=== PATIENT | female | born 2000 | race Two or more races ===

== ENCOUNTER 2022-09-07 00:32 | Emergency (ER) | payer OTHER ==
[~2022-09-07] VITALS: Ht 165.1 cm; Wt 91.6 kg
[2022-09-07] MEDS ORDERED: DIALYVITE 800-1 EACH PO (00:51)
== END 2022-09-07 06:15 ==
LOC: ER 00:32 → EDBD 00:36 → ER 00:36
DX: O98.512 Other viral diseases complicating pregnancy, second trimester (principal); U07.1 COVID-19; Z3A.17 17 weeks gestation of pregnancy

== ENCOUNTER 2022-12-25 17:11 | Outpatient (CLI) | payer OTHER ==
[~2022-12-25 17:11] MED LIST: DIALYVITE 800-1 EACH PO
[2022-12-25 18:32] LABS: HEMATOCRIT 32.9 % (36.0-45.00); HEMOGLOBIN 11.1 g/dL (12.0-15.00); MEAN CELL VOLUME 83.3 fL (80.00-100.00); MEAN CORPUSCULAR HEMOGLOBIN 28.2 pg (27.00-32.0); MEAN CORPUSCULAR HGB CONC 33.8 g/dl (32.0-36.0); PLATELET COUNT 218 K/uL (150-450); RED BLOOD COUNT 3.95 M/uL (4.00-6.00); RED CELL DISTRIBUTION WIDTH 13.9 % (11.5-14.5)
[2022-12-25 18:38] LABS: URINE APPEARANCE Cloudy; URINE BILIRRUBIN Small (NEGATIVE); URINE BLOOD Negative; URINE COLOR Dark Yellow; URINE GLUCOSE Negative (NEGATIVE); URINE LEUKOCYTE Moderate; URINE NITRATE Negative; URINE PROTEIN Negative (NEGATIVE)
[2022-12-25 18:39] LABS: URINE BACTERIA 2585.3 uL (0.0-1933); URINE EPITHELIAL CELLS 126.7 uL (0.0-38.8); URINE RBC 5.8 uL (0.0-20.8); URINE WBC 69.4 uL (0.0-23.2)
[2022-12-25 18:53] LABS: ALBUMIN 2.5 gm/dL (3.4-5.0); BILIRUBIN TOTAL 0.84 mg/dL (0.3-1.2); CALCIUM 9.1 mg/dL (8.5-10.1); CREATININE SERUM 0.48 mg/dL (0.55-1.02); GFR 164.88; GLOBULINA 3.8 G/DL (2.4-3.5); POTASSIUM 3.84 mEq/L (3.5-5.1); TOTAL PROTEIN 6.3 gm/dL (6.4-8.2)
[2022-12-26] MEDS ORDERED: CEPHALEXIN500 M1 PO (08:16)
[2022-12-26] MEDS ORDERED: PREVACID30 MG PO (08:16)
== END 2022-12-26 12:55 | disposition home or self-care (01) ==
LOC: OBS/DEL 17:11
PROVIDERS: ATTEND Specialist
DX: O23.33 Infections of other parts of urinary tract in pregnancy, third trimester (principal); N39.0 Urinary tract infection, site not specified; K21.9 Gastro-esophageal reflux disease without esophagitis; Z3A.31 31 weeks gestation of pregnancy

== ENCOUNTER 2023-02-09 22:23 | Outpatient (CLI) | payer OTHER ==
[~2023-02-09] VITALS: Ht 167.6 cm; Wt 105.2 kg
[~2023-02-09 22:23] MED LIST changes: +CEPHALEXIN500 M1 PO; +PREVACID30 MG PO
== END 2023-02-10 16:21 | disposition home or self-care (01) ==
LOC: OBS/DEL 22:23
PROVIDERS: ATTEND Specialist
DX: O26.893 Other specified pregnancy related conditions, third trimester (principal); Z3A.38 38 weeks gestation of pregnancy; T14.90XA Injury, unspecified, initial encounter; W19.XXXA Unspecified fall, initial encounter; Y93.89 Activity, other specified; Y92.89 Other specified places as the place of occurrence of the external cause

== ENCOUNTER 2023-02-19 04:47 | Inpatient (IN) | payer OTHER ==
[~2023-02-19] VITALS: Ht 167.6 cm; Wt 3.2 kg
[2023-02-19] MEDS ORDERED: IRON18 MG PO (06:39)
[2023-02-19 06:56] LABS: PH,URINE 6.5 (5.0-8.0); URINE APPEARANCE Clear; URINE BILIRRUBIN Negative (NEGATIVE); URINE BLOOD Negative; URINE COLOR Yellow; URINE GLUCOSE Negative (NEGATIVE); URINE LEUKOCYTE Negative; URINE NITRATE Negative; URINE PROTEIN Negative (NEGATIVE); URINE UROBILINOGEN 0.2 E.U./dl
[2023-02-19 06:57] LABS: URINE BACTERIA 36.5 uL (0.0-1933); URINE EPITHELIAL CELLS 6.7 uL (0.0-38.8); URINE RBC 2.2 uL (0.0-20.8); URINE WBC 2.6 uL (0.0-23.2)
[2023-02-19 07:07] LABS: HEMATOCRIT 27.7 % (36.0-45.00); HEMOGLOBIN 9.3 g/dL (12.0-15.00); MEAN CELL VOLUME 80.7 fL (80.00-100.00); MEAN CORPUSCULAR HEMOGLOBIN 27.1 pg (27.00-32.0); MEAN CORPUSCULAR HGB CONC 33.6 g/dl (32.0-36.0); PLATELET COUNT 171 K/uL (150-450); RED BLOOD COUNT 3.43 M/uL (4.00-6.00); RED CELL DISTRIBUTION WIDTH 15.1 % (11.5-14.5)
[2023-02-19 07:40] LABS: INR 0.98; PARTIAL THROMBOPLASTIN TIME 28.2 SECONDS (22.0-34.0); PROTHROMBIN TIME 10.3 SECONDS (9.0-11.5)
[2023-02-19 07:50] LABS: ALBUMIN 2.5 gm/dL (3.4-5.0); BILIRUBIN TOTAL 0.19 mg/dL (0.3-1.2); CALCIUM 8.8 mg/dL (8.5-10.1); CREATININE SERUM 0.56 mg/dL (0.55-1.02); GFR 138.01; GLOBULINA 3.8 G/DL (2.4-3.5); POTASSIUM 3.63 mEq/L (3.5-5.1); TOTAL PROTEIN 6.3 gm/dL (6.4-8.2)
[2023-02-19 21:52] LABS: ABG PH 7.278 (7.35-7.45); ABG PO2 42.5 mmHg (80-100); ABG pCO2 47.1 mmHg (35-45); BASE EXCESS -5.4 mmol/l; BICARBONATE 21.6 mmol/l (23-25); SaO2 69.8 %; o2 21 %
[2023-02-20 03:41] LABS: HEMATOCRIT 25.5 % (36.0-45.00); MEAN CELL VOLUME 82.1 fL (80.00-100.00); MEAN CORPUSCULAR HGB CONC 32.9 g/dl (32.0-36.0); PLATELET COUNT 180 K/uL (150-450); RED CELL DISTRIBUTION WIDTH 14.6 % (11.5-14.5)
[2023-02-20 03:44] LABS: HEMOGLOBIN 8.4 g/dL (12.0-15.00)
[2023-02-20 13:05] LABS: HEMATOCRIT 24.3 % (36.0-45.00); MEAN CELL VOLUME 82.8 fL (80.00-100.00); MEAN CORPUSCULAR HGB CONC 32.7 g/dl (32.0-36.0); PLATELET COUNT 173 K/uL (150-450); RED BLOOD COUNT 2.94 M/uL (4.00-6.00); RED CELL DISTRIBUTION WIDTH 14.8 % (11.5-14.5)
[2023-02-20 13:06] LABS: MEAN CORPUSCULAR HEMOGLOBIN 27.2 pg (27.00-32.0)
[2023-02-21 16:52] LABS: MEAN CELL VOLUME 84.2 fL (80.00-100.00); MEAN CORPUSCULAR HEMOGLOBIN 27.4 pg (27.00-32.0); MEAN CORPUSCULAR HGB CONC 32.6 g/dl (32.0-36.0); PLATELET COUNT 158 K/uL (150-450); RED BLOOD COUNT 3.21 M/uL (4.00-6.00); RED CELL DISTRIBUTION WIDTH 15.2 % (11.5-14.5)
[2023-02-21 17:27] LABS: HEMOGLOBIN 8.8 g/dL (12.0-15.00)
[2023-02-22 06:35] LABS: HEMATOCRIT 26.9 % (36.0-45.00); HEMOGLOBIN 9.1 g/dL (12.0-15.00); MEAN CELL VOLUME 83.7 fL (80.00-100.00); MEAN CORPUSCULAR HEMOGLOBIN 28.3 pg (27.00-32.0); MEAN CORPUSCULAR HGB CONC 33.8 g/dl (32.0-36.0); PLATELET COUNT 167 K/uL (150-450); RED BLOOD COUNT 3.21 M/uL (4.00-6.00); RED CELL DISTRIBUTION WIDTH 15.2 % (11.5-14.5)
== END 2023-02-22 19:13 | disposition home or self-care (01) | DRG 788 ==
LOC: LDR 04:47 → OB/GYN 04:47 → O/R 19:54 → OB/GYN 21:12
PROVIDERS: Obstetrics & Gynecology; ADMIT Specialist; ATTEND Specialist
PROC: 4A1HXCZ Monitoring of Products of Conception, Cardiac Rate, External Approach (ICD-10-PCS; 2023-02-19)
PROC: 10D00Z1 Extraction of Products of Conception, Low, Open Approach (ICD-10-PCS; principal; 2023-02-19 17:00)
DX: O62.1 Secondary uterine inertia (principal); Z3A.39 39 weeks gestation of pregnancy; Z37.0 Single live birth; Z20.822 Contact with and (suspected) exposure to COVID-19